=== PATIENT | male | born 1945 | race Hispanic/Latino ===

== ENCOUNTER 2017-10-20 15:59 | Inpatient (IN) | payer MEDICARE, OTHER ==
[~2017-10-20] VITALS: Ht 172.7 cm; Wt 90.3 kg
[2017-10-20 16:57] LABS: BILIRUBIN,URINE NEGATIVE (NEGATIVE); CLARITY,URINE SL CLOUDY (CLEAR); COLOR,URINE YELLOW (YELLOW); KETONES,URINE NEGATIVE (NEGATIVE); LEUKOCYTE ESTERASE ,URINE 1+ (NEGATIVE); NITRITE,URINE POSITIVE (NEGATIVE); PROTEIN,URINE DIPSTICK 2+ (NEGATIVE); URINE UROBILINOGEN 1 mg/dL (0.2 - 1)
[2017-10-20 17:10] LABS: BACTERIA,URINE MANY /HPF; WBC,URINE (MAN) >50 /HPF (0-5)
[2017-10-20] MEDS ORDERED: SODIUM CHLORIDE 0.9% 1000ML 1,000 ML IV SCH (17:30)
[2017-10-20] MEDS ORDERED: CEFTRIAXONE SOD 1 GM VIAL IM ONE (17:30)
--- NOTE | 2017-10-20 18:06 | Diagnostic Imaging Report ---
PROCEDURE: CT ABDOMEN AND PELVIS WITHOUT CONTRAST TECHNIQUE: The abdomen and pelvis were scanned utilizing a multidetector helical scanner from the diaphragm to the lesser trochanter after the oral administration of water. No IV contrast was administered per physician's request. Coronal and sagittal multiplanar reformations were obtained. COMPARISON: None. INDICATIONS: UTI FINDINGS: ABSENCE OF INTRAVENOUS CONTRAST DECREASES SENSITIVITY FOR DETECTION OF FOCAL LESIONS AND VASCULAR PATHOLOGY. LOWER THORAX: Bilateral mild subpleural reticulation and mild interstitial prominence, and posterior traction bronchiectasis, consistent with fibrotic changes. Mild cardiomegaly. Atherosclerotic calcification of the coronary arteries, aortic valve and thoracic aorta. HEPATOBILIARY: Normal hepatic size and contour. No focal lesions. No intra-or extrahepatic biliary ductal dilation. Gallbladder is not visualized. SPLEEN: No splenomegaly. PANCREAS: No focal masses or ductal dilatation. ADRENALS: No adrenal nodules. KIDNEYS/URETERS: No renal or ureteral calculi, hydronephrosis, or obstruction. Mild bilateral perinephric stranding, with mild stranding surrounding the left ureter. Bilateral renal vascular calcifications. Mostly exophytic 1.7 cm fluid density simple cyst in the mid to inferior left kidney (series 3, image 82). No contour abnormalities. PELVIC ORGANS/BLADDER: No bladder calculi, wall thickening, or focal lesions. Prostate is unremarkable. Seminal vesicles are unremarkable. PERITONEUM / RETROPERITONEUM: No free air or fluid. LYMPH NODES: No lymphadenopathy. VESSELS: Atherosclerotic calcification of the abdominal aorta, aortic branches, and iliac vessels. GI TRACT: No bowel dilation or evidence of obstruction. Distal descending and sigmoid colon diverticulosis, without diverticulitis. Stomach is unremarkable. BONES AND SOFT TISSUES: No aggressive lytic lesions. Multilevel degenerative disc changes in the lower thoracic and lumbosacral spine. Soft tissues are grossly unremarkable. IMPRESSION: 1. No renal, ureteral, or bladder calculi. No hydronephrosis or obstruction. 2. Mild bilateral perinephric stranding, which is nonspecific. 3. Mild stranding surrounding the left ureter, without focal lesions. This may be secondary to a recently passed stone. Evaluation for pyelonephritis is limited by the lack of intravenous contrast. Correlate with urinalysis. 4. Bilateral pulmonary lower lobe fibrotic changes. Jose Paniagua M.D. Dictated by: Jose Paniagua M.D. on 10/20/2017 at 18:12 Electronically approved by: Jose Paniagua M.D. on 10/20/2017 at 18:12
[2017-10-20 18:38] LABS: BASOPHILS % 0.7 % (0.0-1.0); HEMATOCRIT 39.7 % (38.2-49.6); LYMPHOCYTES # (AUTO) 1.2 (1.0-3.2); LYMPHOCYTES % 21.1 % (18.0-39.1); MEAN CORPUSCULAR HEMOGLOBIN 33.4 pg (28-32); MEAN CORPUSCULAR HGB CONC 35.3 g/dL (31-35); MEAN CORPUSCULAR VOLUME 94.7 fL (81-99); MONOCYTES # (AUTO) 0.4 (0.2-0.8); NEUTROPHILS % 70.5 % (38.7-80.0); PLATELET COUNT 163 x10e3/uL (140-360); RED BLOOD COUNT 4.19 x10e6/uL (4.3-5.7); RED CELL DISTRIBUTION WIDTH 13.3 % (11.7-14.4)
[2017-10-20] MEDS ORDERED: ACETAMINOPHEN 325 MG TAB PO PRN (18:45)
[2017-10-20] MEDS ORDERED: SODIUM CHLORIDE 0.9% 1000ML 1,000 ML IV ONE (18:45)
[2017-10-20 18:52] LABS: ALANINE AMINOTRANSFERASE 39 IU/L (0-55); ALBUMIN 3.3 g/dL (3.5-5.0); ALBUMIN/GLOBULIN RATIO 0.7 (0.8-2.0); ALKALINE PHOSPHATASE 119 IU/L (40-150); ANION GAP 15.2 mmol/L (8-16); BLOOD UREA NITROGEN 9 mg/dL (7-26); BUN/CREATININE RATIO 10 (6-25); CALCIUM 8.8 mg/dL (8.4-10.2); CARBON DIOXIDE 25 mmol/L (22-29); CHLORIDE 98 mmol/L (98-107); CREATININE, SERUM 0.87 mg/dL (0.72-1.25); EST GLOMERULAR FILTRATION RATE > 60 ML/MIN (60-); GLUCOSE 110 mg/dL (74-118); POTASSIUM 3.2 mmol/L (3.5-5.1); SODIUM 135 mmol/L (136-145)
[2017-10-20] MEDS: SODIUM CHLORIDE 0.9% 1000ML 1,000 ML IV SCH (19:19)
[2017-10-20] MEDS ORDERED: LEFLUNOMIDE20 MG PO (23:51)
[2017-10-20] MEDS ORDERED: REVATIO20 MG PO (23:51)
[2017-10-20] MEDS ORDERED: ANUSOL-HC30 GM RC (23:51)
[2017-10-20] MEDS ORDERED: CICLOPIROX15 GM TOP (23:51)
[2017-10-20] MEDS ORDERED: OMEPRAZOLE40 MG PO (23:51)
[2017-10-20] MEDS ORDERED: AMLODIPINE BESY10 MG PO (23:51)
[2017-10-20] MEDS ORDERED: BENAZEPRIL HCL10 MG PO (23:51)
[2017-10-20] MEDS ORDERED: FOLIC ACID1 MG PO (23:51)
[2017-10-20] MEDS ORDERED: ALBUTEROL0.63 MG/3 IH (23:51)
[2017-10-20] MEDS ORDERED: TAMSULOSIN HCL0.4 MG PO (23:52)
[2017-10-20] MEDS ORDERED: SULFASALAZINE500 MG PO (23:52)
[2017-10-20 23:58] VITALS: BP 170/73
[2017-10-21] VITALS (7 sets, daily range): BP systolic 134–170; BP diastolic 62–73
[2017-10-21] MEDS ORDERED: POTASSIUM CHLORIDE 20 MEQ TAB CR PO STA (00:50)
[2017-10-21] MEDS: ACETAMINOPHEN 325 MG TAB PO PRN ×4 (01:05→19:03)
[2017-10-21] MEDS: SODIUM CHLORIDE 0.9% 1000ML 1,000 ML IV SCH ×3 (01:25→16:45)
--- NOTE | 2017-10-21 01:39 | History and Physical ---
PRIMARY CARE DOCTOR: Dr. Mei [facility]. HOSPITAL PHYSICIAN: Jayy Vazquez MD HISTORY OF PRESENT ILLNESS: Mr. Flanagan is a pleasant 72-year-old gentleman with infection. The patient drinks alcohol on a daily basis. Furthermore, he has rheumatoid arthritis and is on a couple of anti-rheumatoid agents. The patient started complaining of dysuria, onset about 6 days ago. Urinalysis when he came to the ER showed greater than 50 white blood cells, 102.8 temperature noted in the emergency room. CT abdomen and pelvis shows stranding around the kidneys and ureter although is noncontrast. There was additionally mild lung fibrosis and minimal bronchiectasis that is early. The patient told to me that he had increased LFTs recently and therefore the had interest in these LFTs which were minimally abnormal including T-bili of 1.3, albumin 2.3. PAST MEDICAL HISTORY: Hypertension, rheumatoid arthritis, cholecystectomy, total knee replacement, alcohol use. MEDICATIONS: Medication list reviewed per electronic record. Include sildenafil for erectile dysfunction, sulfasalazine 500 mg b.i.d., leflunomide 20 mg daily, Ol[place], tamsulosin was given for frequency, but he never had ileana obstruction. Other medicines per record. ALLERGIES: NO KNOWN DRUG ALLERGIES. SOCIAL HISTORY: Smoked from age 14 to 72, 1/2 pack per day. He drinks alcohol about 3 beers per day that he admits. No drugs. He has lived in [facility] all his life including he was born in [place]. 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 FAMILY HISTORY: Noncontributory. REVIEW OF SYSTEMS GENERAL: No weight changes. OPHTHALMOLOGIC: No double vision. ENT: No thrush in mouth. ENDOCRINE: No known thyroid disease. PULMONARY: No asthma. CARDIAC: No heart attacks. : No blood in urine. GI: No constipation. INTEGUMENT: No rashes. NEUROLOGIC: No seizures. PSYCHIATRIC: No depression. OBJECTIVE VITAL SIGNS: Afebrile, vital signs noted per electronic record. GENERAL: No acute distress, but he looked pale and weak and he is very low in energy. HEENT: Normocephalic, atraumatic. Throat midline. NECK: Supple. LUNGS: Bilateral air entry, a few rales. CARDIOVASCULAR: S1 and S2. No murmurs, rubs or gallops. ABDOMEN: Soft, nontender. EXTREMITIES: No clubbing, no cyanosis. There is no edema. INTEGUMENT: No rash or purpura. LABS: White count 6, hematocrit 39, platelets 163,000. Potassium 3.2, sodium 135. Total bili 1.3, AST 34, albumin 3.3, globulin 4.8. IMPRESSION 1. Severe sepsis. 2. Multiple complicated urinary tract infections. 3. History of BPH. 4. Rheumatoid arthritis. 5. Functional immunosuppression on immunosuppressive medicines. 6. Alcohol dependency. 7. Chronic smoking. 8. Erectile dysfunction. 9. Hypertension. 10. Elevated liver function tests, mild/minimal. 11. Hypokalemia. 12. Radiographic pulmonary fibrosis, mild. 13. Possible pyelonephritis. PLAN: Continue IV antibiotics, high dose at this time. Followup blood cultures should be drawn and urine will need to be followed. Continue to replete potassium. Check screening chest x-ray given his immunosuppressed condition. Check TSH level. Alcohol and smoking cessation is highly recommended. As the patient stabilizes, will make sure his rheumatoid agents are ongoing. DVT prophylaxis is indicated. Follow up LFTs closely. Thank you very much Dr. Mei in [facility] for allowing me a chance to participate in the care of Mr. Flanagan. Do not hesitate to contact me if I can help in any way. Job#: [id number]
[2017-10-21] MEDS: HYDRALAZINE HCL 20 MG/ML VIAL IV PRN (01:43)
[2017-10-21 06:05] LABS: ALANINE AMINOTRANSFERASE 33 IU/L (0-55); ALBUMIN 2.5 g/dL (3.5-5.0); ALBUMIN/GLOBULIN RATIO 0.7 (0.8-2.0); ALKALINE PHOSPHATASE 89 IU/L (40-150); ANION GAP 12.9 mmol/L (8-16); BLOOD UREA NITROGEN 10 mg/dL (7-26); BUN/CREATININE RATIO 13 (6-25); CALCIUM 7.9 mg/dL (8.4-10.2); CARBON DIOXIDE 23 mmol/L (22-29); CHLORIDE 102 mmol/L (98-107); CREATININE, SERUM 0.75 mg/dL (0.72-1.25); EST GLOMERULAR FILTRATION RATE > 60 ML/MIN (60-); GLUCOSE 113 mg/dL (74-118); SODIUM 135 mmol/L (136-145)
[2017-10-21 06:07] LABS: POTASSIUM 2.9 mmol/L (3.5-5.1)
[2017-10-21 06:26] LABS: FREE THYROXINE INDEX 1.6739 (1.4-3.8); THYROID STIMULATING HORMONE 1.183 uIU/mL (0.350-4.940)
[2017-10-21] MEDS ORDERED: POTASSIUM CHLORIDE 20 MEQ TAB CR PO ONE (07:00)
[2017-10-21] MEDS: ALBUTEROL SULF 0.083% NEB SOLN 3 ML NEB INH SCH ×3 (08:00→19:10)
[2017-10-21] MEDS ORDERED: CICLOPIROX OLAMINE 077% CREAM 15 GM TUBE TOP SCH (09:00)
[2017-10-21] MEDS: AMLODIPINE BESYLATE 10 MG TAB PO SCH (09:27)
[2017-10-21] MEDS: SULFASALAZINE 500 MG TAB PO SCH ×2 (09:27→16:45)
[2017-10-21] MEDS: FOLIC ACID 1 MG TAB PO SCH (09:27)
[2017-10-21] MEDS: TAMSULOSIN HCL 0.4 MG CAP PO SCH (09:27)
[2017-10-21] MEDS: BENAZEPRIL HCL 10 MG TAB PO SCH (09:27)
[2017-10-21] MEDS: PANTOPRAZOLE SOD 40 MG TABEC PO SCH (09:28)
--- NOTE | 2017-10-21 11:24 | Diagnostic Imaging Report ---
PROCEDURE: Frontal and lateral views of the chest. COMPARISON: CT Abdomen/Pelvis 10/20/17. INDICATIONS: SEPSIS; COUGH FINDINGS: Lines/tubes: Overlying EKG leads. Lungs: Moderate lung volumes. lung volumes. Bibasilar opacities, consistent with fibrotic changes as noted on prior CT. No evidence of lobar consolidation or pulmonary edema. Pleura: There is no pleural effusion or pneumothorax. Heart and mediastinum: The cardiomediastinal silhouette is unremarkable. Atherosclerotic calcifications of the aortic arch. Bones: No acute bony abnormality. IMPRESSION: Bibasilar opacities, consistent with fibrotic changes on prior CT. No evidence of lobar pneumonia or pulmonary edema. Dictated by: ANASTASIIA NOWAK M.D. on 10/21/2017 at 7:38 Electronically approved by: ANASTASIIA NOWAK M.D. on 10/21/2017 at 7:38
[2017-10-21] MEDS ORDERED: CEFTRIAXONE SOD 1 GM VIAL IV SCH (17:00)
[2017-10-21] MEDS ORDERED: CIPROFLOXACIN 400 MG/D5W 200ML 200 ML IV SCH ×2 (18:45→21:00)
[2017-10-21] MEDS: MEROPENEM 500 MG VIAL IV SCH (19:03)
--- NOTE | 2017-10-21 19:37 | Consultation ---
DATE OF CONSULTATION: INFECTIOUS DISEASE CONSULTATION REASON FOR CONSULTATION: Sepsis, UTI. HISTORY OF PRESENT ILLNESS: This patient is a 72-year-old male, history of obesity, rheumatoid arthritis. The patient had a kidney infection years ago, comes in with 6 days' history of fever, chills, not feeling well, urgency, frequency, burning on urination. Came to the emergency room. CAT scan showed there is stranding around the kidneys and the urethra. The patient was admitted on IV antibiotic. The patient had elevated liver enzymes. PAST MEDICAL HISTORY: Hypertension, rheumatoid arthritis. PAST SURGICAL HISTORY: Cholecystectomy, total knee replacement. SOCIAL HISTORY: Alcoholism. He drinks daily. REVIEW OF SYSTEMS: HEENT: Negative. PULMONARY: Negative. CARDIAC: Negative. : As above. GI: Negative. PHYSICAL EXAMINATION: GENERAL: He is currently alert, oriented, does not seem to be in acute distress. VITALS: Stable. He is febrile. HEENT: He does not appear icteric. NECK: Supple. CHEST: Clear. HEART: S1 and S2. No S3, no S4, no murmur. ABDOMEN: Soft. Bowel sounds present. No tenderness. IMPRESSION: Sepsis. Pyelonephritis. Will put him on meropenem and Cipro. Recheck CBC, recheck chem panel. Await urine cultures, await blood cultures. Will follow. Job#: [id number] [place]
[2017-10-22] VITALS (8 sets, daily range): BP systolic 126–167; BP diastolic 59–72
[2017-10-22] MEDS ORDERED: MEROPENEM 500MG 500 MG in SODIUM CHLORIDE 0.9% 50ML 50 ML IV SCH ×2
[2017-10-22] MEDS: MEROPENEM 500 MG VIAL IV SCH ×4 (00:27→17:35)
[2017-10-22] MEDS: ACETAMINOPHEN 325 MG TAB PO PRN ×4 (00:27→20:19)
[2017-10-22] MEDS: ALBUTEROL SULF 0.083% NEB SOLN 3 ML NEB INH SCH ×3 (01:40→14:30)
--- NOTE | 2017-10-22 01:56 | Progress Note ---
DATE: October 21, 2017 INTERNAL MEDICINE PROGRESS NOTE This is coverage for Dr. Jayy Vazquez MD SUBJECTIVE: Mr. Flanagan was seen and examined at bedside. Urine culture is growing gram-negative florencio. Blood culture, no growth to date. Patient with very slow progress. He continues to have fevers. 102.5 temperature maximum now. Normal saline at 125 mL per hour. He still overall looks very weak and feels weak. REVIEW OF SYSTEMS: No diarrhea, no constipation. OBJECTIVE: VITAL SIGNS: Afebrile, vital signs noted per electronic record. GENERAL: In no acute distress, alert, calm, but pale and low energy. HEENT: Normocephalic, atraumatic. NECK: Supple. Throat midline. LUNGS: Bilateral air entry, limited breath sounds at the bases, but mostly clear. CARDIOVASCULAR: S1, S2. No murmurs, rubs, or gallops. ABDOMEN: Soft, nontender. EXTREMITIES: No clubbing, no cyanosis, there is no edema. INTEGUMENT: No rash, no purpura. LABS: 2.9 potassium, 28 bicarbonate, 10 BUN, 0.8 creatinine. Albumin is 2.5. TSH is normal. IMPRESSION AND PLAN: 1. Gram-negative florencio complicated urinary tract infection, apparent pyelonephritis per computerized tomography abdomen and pelvis. 2. History of rheumatoid arthritis. 3. Immunosuppressed state. 4. Hypertension. 5. Hypokalemia. Replete potassium. Recheck basic metabolic profile tomorrow. Continue to dose more antibiotics. Follow up urinary culture and ensure appropriate sensitivity given the slow progress of the fevers. Infectious disease consult given the slow progress and immunosuppressed state, and keep our eyes open in case we have to rule out other sources of infection. Patient also has radiographic pulmonary fibrosis and should get outpatient followup as I have spoken to the patient and family member. Job#: [id number]
[2017-10-22] MEDS: SODIUM CHLORIDE 0.9% 1000ML 1,000 ML IV SCH ×2 (03:23→10:43)
[2017-10-22 06:13] LABS: BASOPHILS % 0.3 % (0.0-1.0); HEMATOCRIT 31.3 % (38.2-49.6); HEMOGLOBIN 11.1 g/dL (14.0-18.0); LYMPHOCYTES # (AUTO) 0.6 (1.0-3.2); LYMPHOCYTES % 17.9 % (18.0-39.1); MEAN CORPUSCULAR HGB CONC 35.5 g/dL (31-35); MEAN CORPUSCULAR VOLUME 93.2 fL (81-99); MONOCYTES # (AUTO) 0.3 (0.2-0.8); MONOCYTES % 8.1 % (4.4-11.3); NEUTROPHILS # (AUTO) 2.3 (2.1-6.9); NEUTROPHILS % 73.1 % (38.7-80.0); PLATELET COUNT 106 x10e3/uL (140-360); RED BLOOD COUNT 3.36 x10e6/uL (4.3-5.7)
[2017-10-22 06:29] LABS: ANION GAP 12.9 mmol/L (8-16); BLOOD UREA NITROGEN < 5 mg/dL (7-26); CALCIUM 8.1 mg/dL (8.4-10.2); CARBON DIOXIDE 23 mmol/L (22-29); CHLORIDE 101 mmol/L (98-107); CREATININE, SERUM 0.64 mg/dL (0.72-1.25); EST GLOMERULAR FILTRATION RATE > 60 ML/MIN (60-); GLUCOSE 105 mg/dL (74-118); MAGNESIUM 1.3 MG/DL (1.3-2.1); SODIUM 134 mmol/L (136-145)
[2017-10-22 06:30] LABS: BUN/CREATININE RATIO 8 (6-25)
[2017-10-22 06:31] LABS: POTASSIUM 2.9 mmol/L (3.5-5.1)
[2017-10-22] MEDS ORDERED: POTASSIUM CHLORIDE 20 MEQ TAB CR PO STA (06:35)
[2017-10-22] MEDS: HOME MEDICATION--PATIENTS OWN TOP SCH ×2 (09:00→17:00)
[2017-10-22] MEDS: AMLODIPINE BESYLATE 10 MG TAB PO SCH (10:22)
[2017-10-22] MEDS: BENAZEPRIL HCL 10 MG TAB PO SCH (10:22)
[2017-10-22] MEDS: FOLIC ACID 1 MG TAB PO SCH (10:22)
[2017-10-22] MEDS: SULFASALAZINE 500 MG TAB PO SCH ×2 (10:22→17:35)
[2017-10-22] MEDS: PANTOPRAZOLE SOD 40 MG TABEC PO SCH (10:22)
[2017-10-22] MEDS: TAMSULOSIN HCL 0.4 MG CAP PO SCH (10:22)
[2017-10-22] MEDS ORDERED: ALBUTEROL SULF 0.083% NEB SOLN 3 ML NEB INH PRN (11:15)
[2017-10-22] MEDS ORDERED: MAGNESIUM SULFATE 2GM/50ML 50 ML IV ONE (11:15)
[2017-10-22] MEDS: HYDRALAZINE HCL 20 MG/ML VIAL IV PRN (12:32)
[2017-10-22] MEDS: LACTOBACILLUS ACIDOPHILUS CAPSULE PO SCH (17:35)
[2017-10-23] VITALS (8 sets, daily range): BP systolic 110–154; BP diastolic 58–67
[2017-10-23] MEDS: MEROPENEM 500 MG VIAL IV SCH ×4 (00:50→18:09)
[2017-10-23] MEDS: ACETAMINOPHEN 325 MG TAB PO PRN ×3 (01:00→20:16)
[2017-10-23 05:30] LABS: BASOPHILS % 1.1 % (0.0-1.0); HEMATOCRIT 32.5 % (38.2-49.6); HEMOGLOBIN 11.5 g/dL (14.0-18.0); LYMPHOCYTES # (AUTO) 0.8 (1.0-3.2); LYMPHOCYTES % 29.4 % (18.0-39.1); MEAN CORPUSCULAR HGB CONC 35.4 g/dL (31-35); MEAN CORPUSCULAR VOLUME 93.1 fL (81-99); MONOCYTES # (AUTO) 0.3 (0.2-0.8); MONOCYTES % 9.3 % (4.4-11.3); NEUTROPHILS # (AUTO) 1.6 (2.1-6.9); NEUTROPHILS % 59.8 % (38.7-80.0); PLATELET COUNT 97 x10e3/uL (140-360); RED BLOOD COUNT 3.49 x10e6/uL (4.3-5.7); RED CELL DISTRIBUTION WIDTH 13.1 % (11.7-14.4)
[2017-10-23 05:50] LABS: ANION GAP 12.1 mmol/L (8-16); BLOOD UREA NITROGEN < 5 mg/dL (7-26); CALCIUM 8.4 mg/dL (8.4-10.2); CARBON DIOXIDE 25 mmol/L (22-29); CHLORIDE 99 mmol/L (98-107); CREATININE, SERUM 0.63 mg/dL (0.72-1.25); EST GLOMERULAR FILTRATION RATE > 60 ML/MIN (60-); GLUCOSE 98 mg/dL (74-118); MAGNESIUM 1.9 MG/DL (1.3-2.1); POTASSIUM 3.1 mmol/L (3.5-5.1); SODIUM 133 mmol/L (136-145)
[2017-10-23 05:51] LABS: BUN/CREATININE RATIO 8 (6-25)
[2017-10-23] MEDS ORDERED: POTASSIUM CHLORIDE 20 MEQ TAB CR PO STA (07:59)
[2017-10-23] MEDS: FOLIC ACID 1 MG TAB PO SCH (08:20)
[2017-10-23] MEDS: AMLODIPINE BESYLATE 10 MG TAB PO SCH (08:20)
[2017-10-23] MEDS: SULFASALAZINE 500 MG TAB PO SCH ×2 (08:20→16:56)
[2017-10-23] MEDS: FAMOTIDINE 20 MG TAB PO SCH ×2 (08:20→16:56)
[2017-10-23] MEDS: HOME MEDICATION--PATIENTS OWN TOP SCH ×2 (08:20→16:48)
[2017-10-23] MEDS: TAMSULOSIN HCL 0.4 MG CAP PO SCH (08:20)
[2017-10-23] MEDS: LACTOBACILLUS ACIDOPHILUS CAPSULE PO SCH ×2 (08:20→16:56)
[2017-10-23] MEDS: BENAZEPRIL HCL 10 MG TAB PO SCH (08:20)
[2017-10-23] MEDS ORDERED: POTASSIUM CHLORIDE 20 MEQ TAB CR PO ONE (10:00)
[2017-10-23] MEDS ORDERED: POTASSIUM CHLORIDE 20 MEQ TAB CR PO NR (10:30)
[2017-10-24] VITALS (7 sets, daily range): BP systolic 130–156; BP diastolic 58–75
[2017-10-24] MEDS: MEROPENEM 500 MG VIAL IV SCH ×4 (00:21→17:00)
[2017-10-24 06:13] LABS: EOSINOPHILS % 0.7 % (0.0-6.0); HEMATOCRIT 32.6 % (38.2-49.6); HEMOGLOBIN 11.6 g/dL (14.0-18.0); LYMPHOCYTES # (AUTO) 0.9 (1.0-3.2); LYMPHOCYTES % 30.1 % (18.0-39.1); MEAN CORPUSCULAR HEMOGLOBIN 33.4 pg (28-32); MEAN CORPUSCULAR HGB CONC 35.6 g/dL (31-35); MEAN CORPUSCULAR VOLUME 93.9 fL (81-99); MONOCYTES # (AUTO) 0.3 (0.2-0.8); MONOCYTES % 10.9 % (4.4-11.3); NEUTROPHILS # (AUTO) 1.7 (2.1-6.9); NEUTROPHILS % 56.3 % (38.7-80.0); PLATELET COUNT 104 x10e3/uL (140-360); RED BLOOD COUNT 3.47 x10e6/uL (4.3-5.7); RED CELL DISTRIBUTION WIDTH 13.2 % (11.7-14.4)
[2017-10-24 06:26] LABS: ALANINE AMINOTRANSFERASE 63 IU/L (0-55); ALBUMIN 2.6 g/dL (3.5-5.0); ALBUMIN/GLOBULIN RATIO 0.7 (0.8-2.0); ALKALINE PHOSPHATASE 144 IU/L (40-150); ANION GAP 13.3 mmol/L (8-16); BLOOD UREA NITROGEN 6 mg/dL (7-26); BUN/CREATININE RATIO 10 (6-25); CALCIUM 8.7 mg/dL (8.4-10.2); CARBON DIOXIDE 25 mmol/L (22-29); CHLORIDE 101 mmol/L (98-107); CREATININE, SERUM 0.62 mg/dL (0.72-1.25); EST GLOMERULAR FILTRATION RATE > 60 ML/MIN (60-); GLUCOSE 99 mg/dL (74-118); POTASSIUM 3.3 mmol/L (3.5-5.1); SODIUM 136 mmol/L (136-145)
[2017-10-24] MEDS: HOME MEDICATION--PATIENTS OWN TOP SCH ×2 (09:00→17:00)
[2017-10-24] MEDS: LACTOBACILLUS ACIDOPHILUS CAPSULE PO SCH ×2 (10:12→17:00)
[2017-10-24] MEDS: FAMOTIDINE 20 MG TAB PO SCH (10:12)
[2017-10-24] MEDS: FOLIC ACID 1 MG TAB PO SCH (10:12)
[2017-10-24] MEDS: BENAZEPRIL HCL 10 MG TAB PO SCH (10:12)
[2017-10-24] MEDS: AMLODIPINE BESYLATE 10 MG TAB PO SCH (10:12)
[2017-10-24] MEDS: TAMSULOSIN HCL 0.4 MG CAP PO SCH (10:12)
[2017-10-24] MEDS: SULFASALAZINE 500 MG TAB PO SCH ×2 (10:12→17:00)
[2017-10-24] MEDS ORDERED: POTASSIUM CHLORIDE 20 MEQ TAB CR PO NR (12:00)
--- NOTE | 2017-10-24 16:31 | Diagnostic Imaging Report ---
PROCEDURE: A single AP view of the chest. COMPARISON: 10/21/17 INDICATIONS: STATIS POST PICC LINE PLACEMENT FINDINGS: Lines/tubes: Right PICC in place with tip overlying mid SVC. Lungs: The lungs are well inflated. Bilateral lower lung field prominent lung markings. Pleura: There is no significant pleural effusion or pneumothorax. Heart and mediastinum: The cardiomediastinal silhouette is enlarged on this AP view. Bones: No acute bony abnormality. IMPRESSION: Right PICC in place with tip overlying mid SVC. No visible pneumothorax. Prominent bilateral lower lung field lung markings, could represent fibrotic changes. Underlying infiltrate cannot be excluded. Dictated by: Dexter Bell M.D. on 10/24/2017 at 16:37 Electronically approved by: Dxeter Bell M.D. on 10/24/2017 at 16:37
[2017-10-24] MEDS ORDERED: ENOXAPARIN SOD INJ 40 MG/0.4 ML SYR SC SCH (17:00)
[2017-10-24] MEDS: BENZONATATE 100 MG CAP PO PRN (18:41)
[2017-10-25] VITALS (7 sets, daily range): BP systolic 129–156; BP diastolic 64–87
[2017-10-25] MEDS: MEROPENEM 500 MG VIAL IV SCH ×4 (00:35→17:30)
[2017-10-25 06:10] LABS: BASOPHILS % 0.7 % (0.0-1.0); HEMATOCRIT 32.1 % (38.2-49.6); HEMOGLOBIN 11.2 g/dL (14.0-18.0); LYMPHOCYTES # (AUTO) 1.1 (1.0-3.2); LYMPHOCYTES % 34.5 % (18.0-39.1); MEAN CORPUSCULAR HEMOGLOBIN 32.6 pg (28-32); MEAN CORPUSCULAR HGB CONC 34.9 g/dL (31-35); MEAN CORPUSCULAR VOLUME 93.3 fL (81-99); MONOCYTES # (AUTO) 0.3 (0.2-0.8); MONOCYTES % 10.5 % (4.4-11.3); NEUTROPHILS # (AUTO) 1.6 (2.1-6.9); PLATELET COUNT 110 x10e3/uL (140-360); RED BLOOD COUNT 3.44 x10e6/uL (4.3-5.7); RED CELL DISTRIBUTION WIDTH 13.2 % (11.7-14.4)
[2017-10-25 06:53] LABS: ALANINE AMINOTRANSFERASE 81 IU/L (0-55); ALBUMIN 2.7 g/dL (3.5-5.0); ALKALINE PHOSPHATASE 139 IU/L (40-150); ANION GAP 12.1 mmol/L (8-16); BILIRUBIN,DIRECT 0.5 mg/dL (0.0-0.5); BLOOD UREA NITROGEN 6 mg/dL (7-26); BUN/CREATININE RATIO 9 (6-25); CALCIUM 8.8 mg/dL (8.4-10.2); CARBON DIOXIDE 26 mmol/L (22-29); CHLORIDE 98 mmol/L (98-107); CREATININE, SERUM 0.64 mg/dL (0.72-1.25); EST GLOMERULAR FILTRATION RATE > 60 ML/MIN (60-); GLUCOSE 98 mg/dL (74-118); POTASSIUM 3.1 mmol/L (3.5-5.1); SODIUM 133 mmol/L (136-145)
[2017-10-25] MEDS: LACTOBACILLUS ACIDOPHILUS CAPSULE PO SCH ×2 (08:50→17:30)
[2017-10-25] MEDS: FOLIC ACID 1 MG TAB PO SCH (08:50)
[2017-10-25] MEDS: BENZONATATE 100 MG CAP PO PRN (08:50)
[2017-10-25] MEDS: HOME MEDICATION--PATIENTS OWN TOP SCH ×2 (08:50→17:00)
[2017-10-25] MEDS: TAMSULOSIN HCL 0.4 MG CAP PO SCH (08:50)
[2017-10-25] MEDS: SULFASALAZINE 500 MG TAB PO SCH ×2 (08:50→17:30)
[2017-10-25] MEDS: AMLODIPINE BESYLATE 10 MG TAB PO SCH (08:50)
[2017-10-25 09:07] LABS: BAND NEUTROPHILS % (MANUAL) 1 %; EOSINOPHILS % (MANUAL) 1 % (0-7); LYMPHOCYTES % (MANUAL) 24 % (19-48); MONOCYTES % (MANUAL) 14 % (3.4-9.0); NEUTROPHILS % (MANUAL) 51 % (40-74); PLATELET ESTIMATE SLIGHTLY DECREASED
[2017-10-25 09:10] LABS: ANISOCYTOSIS SLIGHT; HYPOCHROMASIA SLIGHT; RBC MORPHOLOGY COMMENT NORMAL
[2017-10-25] MEDS ORDERED: POTASSIUM CHLORIDE 20 MEQ TAB CR PO NR (10:41)
--- NOTE | 2017-10-25 11:22 | Discharge Summary ---
PRIMARY CARE DOCTOR: Dr. Davey Betts with [facility]. FINAL DIAGNOSIS: Sepsis present on admission due to extended-spectrum beta-lactamase Escherichia coli bilateral acute pyelonephritis. SECONDARY DIAGNOSES 1. Mild thrombocytopenia, recovering. 2. Clostridium difficile negative antibiotic-induced diarrhea, getting better. 3. Rheumatoid arthritis. 4. Known pulmonary fibrosis followed by his in home sales representative. QUALITY ASSURANCE MONITOR CHASSIS: Dr. Jiménez, infectious disease. PROCEDURES/STUDIES PERFORMED 1. CT of the abdomen and pelvis. 2. Peripherally inserted central catheter line insertion. HISTORY: Per [facility] HOSPITAL COURSE: The patient was admitted and was diagnosed with ESBL E. coli pyelonephritis. It took several days for him to become afebrile. Initially, he was not on appropriate antibiotic. Once we found out it was ESBL, meropenem was started. A PICC line was placed The patient will go home on 2 more weeks of IV antibiotics through home health, and then home health will remove the PICC line after completion of IV antibiotics. I have updated his primary care doctor about this hospitalization. The patient was seen and examined today. It took 33 minutes total to discharge this patient. CONDITION ON DISCHARGE: Stable. DISCHARGE MEDICATIONS: Please see medication reconciliation form. RENU REYNA M.D. Job#: [id number] cc:DAVEY BETTS MD
== END 2017-10-25 18:53 | disposition home or self-care (01) | DRG 872 ==
LOC: ER 15:59 → ERHOLD 22:34 → MED/SURG 23:58 → MED/SURG3 10-23 09:31
PROVIDERS: ADMIT Internal Medicine; ATTEND Internal Medicine
PROC: 02HV33Z Insertion of Infusion Device into Superior Vena Cava, Percutaneous Approach (ICD-10-PCS; principal; 2017-10-21)
DX: A41.9 Sepsis, unspecified organism (principal); N12 Tubulo-interstitial nephritis, not specified as acute or chronic; A04.72 Enterocolitis due to Clostridium difficile, not specified as recurrent; N10 Acute pyelonephritis; D61.818 Other pancytopenia; R65.20 Severe sepsis without septic shock; M06.9 Rheumatoid arthritis, unspecified; F10.20 Alcohol dependence, uncomplicated; F17.210 Nicotine dependence, cigarettes, uncomplicated; N52.9 Male erectile dysfunction, unspecified; I10 Essential (primary) hypertension; D69.6 Thrombocytopenia, unspecified; M79.7 Fibromyalgia; B96.20 Unspecified Escherichia coli [E. coli] as the cause of diseases classified elsewhere; Z16.12 Extended spectrum beta lactamase (ESBL) resistance; Z79.899 Other long term (current) drug therapy; E87.6 Hypokalemia; R79.89 Other specified abnormal findings of blood chemistry; E83.42 Hypomagnesemia
CPT/HCPCS: 36415; 36569; 71045; 71046; 74176; 80048; 80053; 80076; 81001; 82948; 83735; 84436; 84443; 84479; 85025; 87040; 87086; 87186; 87493; 94640; 99284; J0360; J0696; J2185; J7030

== ENCOUNTER 2025-01-10 10:48 | Emergency (ER) | payer MEDICARE, OTHER ==
[~2025-01-10] VITALS: Ht 172.7 cm; Wt 63.5 kg
[~2025-01-10 10:48] MED LIST: ALBUTEROL0.63 MG/3 IH; AMLODIPINE BESY10 MG PO; ANUSOL-HC30 GM RC; BENAZEPRIL HCL10 MG PO; CICLOPIROX15 GM TOP; FOLIC ACID1 MG PO; LEFLUNOMIDE20 MG PO; OMEPRAZOLE40 MG PO; REVATIO20 MG PO; SULFASALAZINE500 MG PO; TAMSULOSIN HCL0.4 MG PO
[2025-01-10] MEDS: DIPHTH,PERTUSS(ACELL),TET VAC 0.5 ML SYRINGE IM ONE (12:13)
[2025-01-10] MEDS: LIDOCAINE HCL 1% LOCAL INJ 20 ML VIAL INJ ONE (12:14)
[2025-01-10 15:50] VITALS: PULSE 61; RESP 18; TEMP 98.3; O2SAT 99
== END 2025-01-10 15:52 | disposition home or self-care (01) ==
LOC: ER 11:12
DX: S00.83XA Contusion of other part of head, initial encounter (principal); W01.0XXA Fall on same level from slipping, tripping and stumbling without subsequent striking against object, initial encounter; Y92.019 Unspecified place in single-family (private) house as the place of occurrence of the external cause; I10 Essential (primary) hypertension; E78.5 Hyperlipidemia, unspecified; Z96.659 Presence of unspecified artificial knee joint
CPT/HCPCS: 70450; 72125; 99284; J2003